=== PATIENT | male | born 1995 | race Caucasian/White ===

== ENCOUNTER 2017-05-24 21:15 | Emergency (ER) | payer BC, SELFPAY ==
[2017-05-24] MEDS ORDERED: Ondansetron HCl/PF 4 MG/2 ML Vial ONE ×2 (21:51→23:24)
[2017-05-24] MEDS ORDERED: Morphine 4 MG/ML VIAL ONE ×2 (21:51→23:02)
[2017-05-24 22:15] LABS: Bilirubin Negative (Negative); Blood, Urine Negative (Negative); Clarity CLEAR (Clear); Glucose, Urine (Dipstick) Negative (Negative); Leukocyte Negative (Negative); Nitrite Negative (Negative); Protein, Urine (Dipstick) 30 mg/dL (Neg-Trace); Specific Gravity, Urine 1.018 (1.002-1.036); pH, Urine 7.5 (5.0-9.0)
[2017-05-24 22:16] LABS: Bacteria/HPF None Seen HPF (None Seen); Hyaline Casts/LPF 0-3 HYALINE CAST LPF (0-3 Hyaline); Pathc Cast-AUWi Flag 0.13 (0-2.49); RBC/HPF 0-3 HPF (0-3); Squamous Epithelial None Seen HPF (0-3); WBC/HPF 0-3 HPF (0-3)
[2017-05-24 22:16] LABS: #Eosinphils 0.1 thou/uL (0.0-0.7); #Lymphocytes 1.9 thou/uL (1.20-3.40); #Monocytes 0.8 thou/uL (0.11-0.59); #Neutrophils 9.9 thou/uL (1.40-6.50); %Basophils 0.1 % (0.0-1.0); %Eosinophils 0.5 % (0.0-10.0); %Monocytes 6.6 % (0.0-10.0); %Neutrophils 77.8 % (42.0-75.0); Hemoglobin 15.7 g/dL (14.0-18.0); Mean Corpuscular HGB CONC 33.7 g/dL (32.0-36.0); Mean Corpuscular Hemoglobin 30.9 pg (27.0-31.0); Mean Corpuscular Volume 91.7 fl (80.0-94.0); Mean Platelet Volume 7.5 fL (7.4-10.4); Platelet Count 240 thou/uL (130-400); RBC Distribution Width 11.3 % (11.5-14.5); Red Blood Cell (RBC) Count 5.09 mill/uL (4.70-6.10); White Blood Cell (WBC) Count 12.8 thou/uL (4.8-10.8)
[2017-05-24 22:39] LABS: ALT (SGPT) 10 U/L (8-55); AST (SGOT) 17 U/L (5-34); Albumin 4.6 g/dL (3.5-5.0); Alkaline Phosphatase 73 U/L (40-150); Anion Gap 16 mmol/L (10-20); BUN (Urea Nitrogen) 9 mg/dL (8.9-20.6); Bilirubin, Total 0.6 mg/dL (0.2-1.2); Calc. Creatinine Clearance 0 mL/min (70-130); Calcium 9.3 mg/dL (7.8-10.44); Carbon Dioxide 23 mmol/L (22-29); Chloride 104 mmol/L (98-107); Estimated GFR-MDRD Greater than 90; Globulin 2.8 g/dL (2.4-3.5); Glucose 88 mg/dL (70-105); Lipase 22 U/L (8-78); Potassium 3.7 mmol/L (3.5-5.1); Protein, Total 7.4 g/dL (6.0-8.3); Sodium 139 mmol/L (136-145)
--- NOTE | 2017-05-24 22:50 | RAD ---
PORTABLE UPRIGHT FRONTAL CHEST RADIOGRAPH 05/24/17 COMPARISON: None. HISTORY: Trauma, pain. FINDINGS: No pneumothorax, pleural fluid, focal consolidation, or alveolar edema. Heart and mediastinal contour s are unremarkable. IMPRESSION: No acute findings. POS: [facility]
[2017-05-24] MEDS ORDERED: Morphine 10 MG/ML VIAL ONE (23:02)
[2017-05-24 23:05] LABS: CKMB 1.1 ng/mL (0-6.6); Troponin I Less than 0.010 ng/mL (< 0.028)
--- NOTE | 2017-05-24 23:51 | CT ---
CT OF CHEST CT OF ABDOMEN AND PELVIS CT THORACIC SPINE CT LUMBAR SPINE 05/24/17 COMPARISON: None. HISTORY: Fall from a horse, right chest wall injury. TECHNIQUE: Serial axial CT imaging obtained at 5 mm intervals from the thoracic inlet through the pubic symphysi s with IV contrast. Coronal and sagittal reformatted imaging of chest, abdomen, pelvis, thoracic spin e and lumbar spine obtained. FINDINGS: There is no lymphadenopathy seen in the chest. There is no pneumothorax seen on either side. The lung parenchyma is grossly unremarkable. No endobronchial lesion. No pleural, pericardial or mediastinal fluid. The extraspinal osseous structures of the chest demonstrate no acute findings. No free intraperitoneal air or fluid. Liver, gallbladder, spleen, pancreas, and adrenal glands are u nremarkable. Right kidney is unremarkable. Left kidney is absent. There is an oval mass in the left hemipelvis on axial image 100 measuring 4.4 x 3.2 cm, with Hounsfie ld units of 51, consistent with a nonspecific solid mass within the left hemipelvis. Limited assessme nt of the bowel without contrast appears unremarkable. Vascular structures of abdomen and pelvis appe ar unremarkable. No retroperitoneal lymphadenopathy. The extraspinal osseous structures of the abdomen/pelvis appear unremarkable. Thoracic spine demonstrates no evidence for fracture or dislocation. Lumbar spine demonstrates no evidence for fracture or dislocation. IMPRESSION: 1. No acute traumatic abnormality is seen within the chest, abdomen, pelvis, thoracic spine or l umbar spine. 2. The left kidney is absent. 3. Oval soft tissue mass seen in the left hemipelvis. Further assessment via pelvic MRI with and without contrast is advised as this may represent a neoplastic lesion. This does not have the appear ance of a pelvic kidney. Dr. Leos made aware 11:40 p.m., 05/24/17. Code CR POS: [facility]
== END 2017-05-25 00:31 | disposition home or self-care (01) ==
LOC: ERS 21:15
DX: S30.1XXA Contusion of abdominal wall, initial encounter (principal); S20.211A Contusion of right front wall of thorax, initial encounter; Q60.0 Renal agenesis, unilateral; R19.00 Intra-abdominal and pelvic swelling, mass and lump, unspecified site; R80.9 Proteinuria, unspecified; F17.220 Nicotine dependence, chewing tobacco, uncomplicated; W55.22XA Struck by cow, initial encounter
CPT/HCPCS: 71045; 71260; 74177; 80053; 81003; 81015; 82553; 83690; 84484; 85025; 93005; 96374; 96375; 96376; J2270; J2405